=== PATIENT | male | born 1980 | race Caucasian/White ===

== ENCOUNTER 2018-09-21 21:22 | Emergency (ER) | payer SELFPAY ==
[~2018-09-21] VITALS: Ht 177.8 cm; Wt 92.0 kg
[2018-09-21] MEDS: PAROXETINE HCL 10MG TABLET PO SCH ×2 (22:00→23:00)
[2018-09-21] MEDS ORDERED: ARIPIPRAZOLE 10MG TABLET PO ONE (22:00)
[2018-09-21] MEDS ORDERED: ARIPIPRAZOLE 5MG TABLET PO ONE (22:45)
[2018-09-22 01:05] LABS: BASOPHILS % 1.5 % (0.0-2.0); EOSINOPHILS % 4.4 % (0.0-5.0); HEMATOCRIT. 40.6 % (42.0-52.0); HEMOGLOBIN. 13.9 g/dL (14.0-18.0); LYMPHOCYTES % 31.7 % (20.0-50.0); MEAN CORPUSCULAR HEMOGLOBIN 29.8 pg (28.0-32.0); MEAN PLATELET VOLUME 7.3 fl (7.4-10.4); MONOCYTES % 10.1 % (2.0-8.0); NEUTROPHILS % 52.3 % (40.0-76.0); PLATELET 263 x1000/uL (130-400); RED BLOOD CELL COUNT 4.67 mill/uL (4.7-6.1); RED CELL DISTRIBUTION WIDTH 14.2 % (11.6-14.6)
[2018-09-22 01:11] LABS: CHLORIDE 104 mEq/L (98-107)
[2018-09-22 01:16] LABS: ETHANOL BLOOD < 10 mg/dL
[2018-09-22 04:29] LABS: CLARITY URINE CLEAR (CLEAR); KETONES URINE NEGATIVE (NEGATIVE); LEUKOCYTE ESTERASE URINE NEGATIVE (NEGATIVE); NITRITE URINE NEGATIVE (NEGATIVE); OCCULT BLOOD URINE NEGATIVE (NEGATIVE); PH URINE 5.5 (4.5-8.0); PROTEIN URINE NEGATIVE (NEGATIVE); SPECIFIC GRAVITY URINE 1.014 (1.005-1.030); UROBILINOGEN URINE 0.2 E.U./dL (0.2-1.0)
[2018-09-22 04:32] LABS: COLOR URINE YELLOW (YELLOW)
[2018-09-22 04:40] LABS: *AMPHETAMINES SCREEN URINE PRESUMTIVE POSITIVE (NEGATIVE); *BARBITURATES SCREEN URINE NEGATIVE (NEGATIVE); *BENZODIAZEPINES SCREEN URINE NEGATIVE (NEGATIVE); *COCAINE SCREEN URINE NEGATIVE (NEGATIVE)
[2018-09-22 04:41] LABS: CANNABINOID URINE SCREEN NEGATIVE (NEGATIVE); METHADONE URINE SCREEN NEGATIVE (NEGATIVE); OPIATES URINE SCREEN NEGATIVE (NEGATIVE); PHENCYCLIDINE URINE SCREEN NEGATIVE (NEGATIVE)
[2018-09-22 16:17] VITALS: BP 107/74
== END 2018-09-22 16:20 ==
LOC: ER 21:22
DX: R45.851 Suicidal ideations (principal); F99 Mental disorder, not otherwise specified; I10 Essential (primary) hypertension; F17.200 Nicotine dependence, unspecified, uncomplicated; Z59.0 Homelessness
CPT/HCPCS: 36415; 80053; 80305; 80307; 80329; 81003; 85025; 99285; G0482